=== PATIENT | female | born 1990 | race Caucasian/White ===

== ENCOUNTER 2017-02-02 05:54 | Inpatient (IN) | payer OTHER ==
[2017-02-02] MEDS ORDERED: LACTATED RINGERS 1,000 ML IV SCH (06:11)
[2017-02-02] MEDS ORDERED: TERBUTALINE 1 MG/ML VIAL SQ PRN (06:11)
[2017-02-02] MEDS ORDERED: METHYLERGONOVINE 0.2 MG/ML 1 ML AMP IM PRN (06:11)
[2017-02-02] MEDS ORDERED: CARBOPROST TROMETHAMINE 250 MCG/ML 1 ML AMP IM PRN (06:11)
[2017-02-02] MEDS ORDERED: LIDOCAINE 1% 20 ML VIAL (10MG/ML) FOR IV START INTRADERMA PRN (06:11)
[2017-02-02] MEDS ORDERED: LIDOCAINE 1% (PF) 10 MG/ML (30 ML SDV) SQ PRN (06:11)
[2017-02-02] MEDS ORDERED: OXYTOCIN 10 UNIT/ML 1 ML VIAL IM PRN (06:11)
[2017-02-02] MEDS ORDERED: OXYTOCIN 30 UNITS/500 ML NS 30 UNIT in SALINE 1 500ML.BAG IV SCH ×2 (06:11→15:12)
[2017-02-02 06:33] LABS: Basophils % (A) 0 %; CH 25.5; CHCM 31.7; Eosinophils # (A) 0.1 k/uL (0-0.7); Eosinophils % (A) 1 %; HCT 32.3 % (34.0-46.0); HDW 3.18; HGB 10.1 gm/dL (11.4-16.0); Hypochromasia Slight; Luc # (Auto) 0.32; Luc % (Auto) 4; Lymphocytes # (A) 1.6 k/uL (1.0-4.8); Lymphocytes % (A) 17 %; MCH 25.3 pg (25.0-35.0); MCHC 31.4 g/dL (31.0-37.0); MCV 80.8 fL (80.0-100.0); Monocytes # (A) 0.4 k/uL (0-1.0); Monocytes % (A) 5 %; Neutrophils # (A) 6.8 k/uL (1.3-7.7); Neutrophils % (A) 74 %; RDW 14.1 % (11.5-15.5); WBC 9.2 k/uL (3.8-10.6); WBC (Perox) 10.11
[2017-02-02] MEDS: LACTATED RINGERS 1,000 ML IV SCH ×2 (06:36→09:29)
--- NOTE | 2017-02-02 08:28 | P.HPOB ---
History of Present Illness H&P Date: 02/02/17 Chief Complaint: Induction of labor This is a 26-year-old female 5 para 2 with an estimated date of confinement of 02/06/2017, estimated gestational age of 39-3/7 weeks, who presents to labor and delivery for induction of labor. She admits to good movement and has been feeling irregular contractions. course has been uncomplicated. labs: Pap smear within normal limits GC/chlamydia-negative Syphilis antibody-negative Rubella-immune Blood type-A- Antibody screen-negative Random glucose-77 Hepatitis B surface antigen-negative Hemoglobin-12.3 HIV-negative Obstetrical ultrasound-normal anatomy One hour Glucola-119 Group B streptococcus-negative Obstetrical history: . History of 2 miscarriages and history of 2 vaginal deliveries at term. Gynecologic history: No history of sexual transmitted diseases. Review of Systems Gastrointestinal: Reports abdominal pain (Contractions) Genitourinary: Reports pelvic pain, Reports Past Medical History Past Medical History: No Reported History History of Any Multi-Drug Resistant Organisms: None Reported Additional Past Surgical History / Comment(s): eye surgery (), D&C Past Anesthesia/Blood Transfusion Reactions: No Reported Reaction Past Psychological History: No Psychological Hx Reported Smoking Status: Never smoker Past Alcohol Use History: None Reported Past Drug Use History: None Reported - Past Family History Father Family Medical History: No Reported History Medications and Allergies Home Medications Medication Instructions Recorded Confirmed Type Pnv with Ca,No.72/Iron/FA 1 tab PO DAILY 06/05/15 02/02/17 History [ Plus Tablet] Allergies Allergy/AdvReac Type Severity Reaction Status Date / Time No Known Allergies Allergy Verified 02/02/17 06:11 Exam Osteopathic Statement: *. No significant issues noted on an osteopathic structural exam other than those noted in the History and Physical/Consult. - Vital Signs Vital signs: Vital Signs Temp Pulse Resp BP 02/02/17 06:11 97.1 F L 104 H 16 130/62 Intake and Output 02/01/17 02/02/17 02/02/17 22:59 06:59 14:59 Other: Weight 79.832 kg HEENT: Within normal limits Heart: Regular rate and rhythm Lungs: Clear to auscultation bilaterally Abdomen: Cervix: 2-1/2 cm/70%/-2 station heart tones: Reactive Contractions: Irregular Extremities: Negative Homans Results Result Diagrams: 02/02/17 06:15 Abnormal Lab Results - Last 24 Hours (Table) 02/02/17 Range/Units 06:15 Hgb 10.1 L (11.4-16.0) gm/dL Hct 32.3 L (34.0-46.0) % Assessment and Plan (1) 39 weeks gestation of Status: Acute Plan: Proceed with oxytocin induction of labor. Expectant management. Epidural anesthesia when desired.
[2017-02-02] MEDS ORDERED: fentaNYL (PF) 50 MCG/ML 5 ML AMP ONE (09:37)
[2017-02-02] MEDS ORDERED: BUPIVACAINE (PF) 0.25% 30 ML VIAL ONE (09:37)
[2017-02-02] MEDS ORDERED: SODIUM CHLORIDE 0.9% 100 ML BAG ONE (09:37)
[2017-02-02] MEDS ORDERED: BUPIVACAINE (PF) 0.25% 25 ML, fentaNYL (PF) 200 MCG in SODIUM CHLORIDE 0.9% 71 ML EPIDURAL ONE (10:20)
[2017-02-02] MEDS ORDERED: ZOLPIDEM 5 MG TAB PO PRN (15:12)
[2017-02-02] MEDS ORDERED: diphenhydrAMINE 50 MG/ML 1 ML VIAL IVP PRN ×2 (15:12)
[2017-02-02] MEDS ORDERED: WITCH HAZEL 1 EACH MED..PAD TOPICAL PRN (15:12)
[2017-02-02] MEDS ORDERED: diphenhydrAMINE 50 MG CAP PO PRN (15:12)
[2017-02-02] MEDS ORDERED: diphenhydrAMINE 25 MG CAP PO PRN (15:12)
[2017-02-02] MEDS ORDERED: Acetaminophen-Codeine 300-30mg TAB PO PRN ×2 (15:12)
[2017-02-02] MEDS ORDERED: BENZOCAINE/MENTHOL SPRAY 1 GM/SPRAY AEROSOL TOPICAL PRN (15:12)
[2017-02-02] MEDS ORDERED: LANOLIN CREAM 5 GM TUBE TOPICAL PRN (15:12)
[2017-02-02] MEDS ORDERED: SIMETHICONE 80 MG CHEWABLE PO PRN (15:12)
[2017-02-02] MEDS ORDERED: HYDROCORTISONE 2.5% RECTAL CREAM 30 GM TUBE RECTAL PRN (15:12)
[2017-02-02] MEDS: IBUPROFEN 600 MG TAB PO PRN ×2 (15:38→23:18)
--- NOTE | 2017-02-02 17:32 | P.PROBDLV ---
Vaginal Delivery Note - . Vaginal Delivery Note: The patient progressed to complete dilation after oxytocin induction of labor and artificial rupture membranes with clear fluid noted. She did receive epidural anesthesia. Once reaching complete dilation, she began pushing. Infant's head came to a crown. With one further push, the infant's head delivered across the perineum followed by the anterior shoulder. Nose and mouth were bulb suctioned at the perineum. With one remaining push, the remainder the easily delivered and was placed on mother's abdomen. Cord was clamped and cut and infant was taken to warmer for evaluation. A viable male is noted with scores of 9 at 1 minute and 9 at 5 minutes and infant weight of 8 lbs. 8 oz. Placenta delivered shortly thereafter, intact, with a three-vessel cord. Uterus contracted fairly well after oxytocin was given and uterine massage was carried out. Inspection of the perineum revealed a second-degree perineal laceration. This area was anesthetized with 1% lidocaine and then sutured with 3-0 Vicryl suture in the usual multilayer fashion. Uterus did become boggy and several clots were expressed. Bladder was drained and the uterus did firm up fairly well. Estimated blood loss is approximate 200 mL's. Both mother and infant are in stable condition.
[2017-02-02] MEDS: ACETAMINOPHEN TAB 325 MG TAB PO PRN (19:31)
[2017-02-02] MEDS: SENNOSIDES-DOCUSATE SODIUM 1 EACH TAB PO SCH ×2 (21:53→23:17)
[2017-02-02] MEDS ORDERED: Rhogam IMMUNE GLOBULIN 1,500 UNIT/1 ML IM ONE (23:03)
[2017-02-03] MEDS: ACETAMINOPHEN TAB 325 MG TAB PO PRN ×3 (04:43→20:48)
--- NOTE | 2017-02-03 07:29 | P.PNOBGVD ---
Subjective - Subjective Principal diagnosis: Status post vaginal delivery day #1 Interval history: Patient is doing well. Pain is fairly well controlled with oral pain medications. Lochia is decreasing. She is breast-feeding. Patient reports: Reports appetite normal, Reports voiding normally, Reports pain well controlled, Reports ambulating normally Logan: doing well, nursing well Objective - Latest Vital Signs Latest vital signs: Vital Signs Temp Pulse Resp BP 02/03/17 00:00 98 F 99 15 119/80 02/02/17 20:00 98 F 94 15 117/69 02/02/17 17:11 98.8 F 109 H 16 119/58 02/02/17 16:41 98.9 F 112 H 16 126/57 02/02/17 16:11 105 H 16 119/57 02/02/17 15:56 99 F 102 H 16 133/62 02/02/17 15:41 107 H 16 133/62 02/02/17 15:26 98 16 129/56 02/02/17 15:11 88 16 130/60 Intake and Output 02/02/17 02/03/17 02/03/17 22:59 06:59 14:59 Intake Total 1258.533 Balance 1258.533 Intake: IV 1000 Lactated Ringers 1,000 ml 1000 @ 125 mls/hr IV .Q8H JOHNATHAN Rx#:[id number] Intake, IV Titration 258.533 Amount Oxytocin 30 Units/500 ml 8.533 Ns 30 unit In Saline 1 500ml.bag @ 1 MILLIUNIT/ MIN 1 mls/hr IV .Q24H JOHNATHAN Rx#:[id number] Oxytocin 30 Units/500 ml 250 Ns 30 unit In Saline 1 500ml.bag @ 120 MILLIUNIT /MIN 120 mls/hr IV . Q4H10M JOHNATHAN Rx#:[id number] Other: # Voids 1 1 - Exam Extremities: Present: normal. Absent: tenderness Abdomen: Present: normal appearance, soft. Absent: distention, tenderness Uterus: Present: normal, firm. Absent: tenderness Assessment and Plan (1) 39 weeks gestation of Narrative/Plan: Impression is status post vaginal delivery day #1. Plan is to discharge home tomorrow. We'll continue with care today. Current Visit: Yes Status: Acute Code(s): Z3A.39 - 39 WEEKS GESTATION OF SNOMED Code(s): 51333053
[2017-02-03] MEDS: SENNOSIDES-DOCUSATE SODIUM 1 EACH TAB PO SCH ×2 (08:55→20:36)
[2017-02-03] MEDS: IBUPROFEN 600 MG TAB PO PRN ×2 (08:55→15:53)
[2017-02-03 10:11] LABS: Basophils % (A) 0 %; CH 25.5; CHCM 31.1; Eosinophils % (A) 0 %; HCT 32.2 % (34.0-46.0); HDW 3.06; HGB 9.7 gm/dL (11.4-16.0); Hypochromasia Moderate; Luc # (Auto) 0.29; Luc % (Auto) 3; Lymphocytes # (A) 1.4 k/uL (1.0-4.8); Lymphocytes % (A) 12 %; MCH 24.7 pg (25.0-35.0); MCV 82.4 fL (80.0-100.0); Mean Platelet Volume 9.2; Monocytes # (A) 0.4 k/uL (0-1.0); Monocytes % (A) 3 %; Neutrophils # (A) 9.4 k/uL (1.3-7.7); Neutrophils % (A) 82 %; RBC 3.91 m/uL (3.80-5.40); RDW 14.1 % (11.5-15.5); WBC 11.4 k/uL (3.8-10.6); WBC (Perox) 12.45
[2017-02-04] MEDS: IBUPROFEN 600 MG TAB PO PRN (07:34)
--- NOTE | 2017-02-04 07:47 | P.DS ---
Providers Date of admission: 02/02/17 05:54 Expected date of discharge: 02/04/17 Attending physician: Ines Hayden Primary care physician: Gia Cheng - Discharge Diagnosis(es) (1) 39 weeks gestation of Current Visit: Yes Status: Acute Hospital Course: This is a 26-year-old female 5 para 2 at 39-3/7 weeks who presented for induction of labor. She underwent oxytocin induction of labor and delivered vaginally a viable male on 02/02/2017 with scores of 9 at 1 minute and 9 at 5 minutes and weight of 8 lbs. 8 oz. Her course has been essentially uncomplicated. Her pain and cramping has been controlled with ibuprofen and Tylenol 3. She is breast-feeding. Lochia is decreasing. Vital signs are stable. Abdomen is soft with fundus firm and nontender. Extremities show negative Homans. Impression is status post vaginal delivery day #2. Plan is to discharge home today. Routine instructions are given. She will be given prescriptions for ibuprofen and Tylenol 3. She are he has a prescription for a breast pump. She is advised to call the office if she has any further questions or concerns prior to her appointment time. She is advised follow-up in the office in 6 weeks. Procedures: Oxytocin induction of labor Spontaneous vaginal delivery of a viable male infant on 02/02/2017 Patient Condition at Discharge: Stable Plan - Discharge Summary New Discharge Prescriptions: Acetaminophen-Codeine 300-30mg [Tylenol w/codeine #3] 1 each PO Q4HR PRN #30 tab PRN Reason: Mild Pain exceeding Tylenol Ibuprofen [Motrin] 600 mg PO Q6HR PRN #60 tab PRN Reason: Mild Pain Or Fever >= 100.5 Discharge Medication List Pnv with Ca,No.72/Iron/FA [ Plus Tablet] 1 tab PO DAILY 06/05/15 [ History] Acetaminophen Tab [Tylenol] 650 mg PO Q4HR PRN #0 tab 06/06/15 [Rx] Acetaminophen-Codeine 300-30mg [Tylenol w/codeine #3] 1 each PO Q4HR PRN #30 tab 02/04/17 [Rx] Ibuprofen [Motrin] 600 mg PO Q6HR PRN #60 tab 02/04/17 [Rx] Follow up Appointment(s)/Referral(s): Ines Hayden DO [Doctor of Osteopathic Medicine] - 6 Weeks Activity/Diet/Wound Care/Special Instructions: Instructions 1. Do not begin any exercise program for 3 weeks. 2. Do not resume sexual relations for 3 weeks or longer if uncomfortable. 3. You may take tub baths or showers at any time. 4. You may use tampons if desired after 3 weeks. 5. Keep the area of episiotomy (stitches) clean and dry. 6. If you are not nursing, wear a good fitting, supportive bra during the day and limit fluid intake for at least 1 week to prevent breast engorgement. 7. Call the office, [phone], within the next week to make appointment for your 6 week checkup if it has not already been made. 8. Report any of the following occurrences to the doctor promptly: a. Heavy, excessive bleeding b. Chills, fever c. Burning or frequency of urination d. Pain or redness and breasts if nursing e. Increasing pain or swelling in episiotomy (stitches). In addition to the above instructions, the following additional should be followed: 1. No heavy lifting or straining (exercising) until after 6 week checkup. 2. Keep abdominal incision clean and dry: You may wear a dressing if more comfortable. 3. Make office appointment for 10 days after going home or as instructed by her doctor. Discharge Disposition: HOME SELF-CARE
[2017-02-04 08:24] VITALS: BP 95/64; PULSE 86; RESP 16; TEMP 98.2
[2017-02-04] MEDS: SENNOSIDES-DOCUSATE SODIUM 1 EACH TAB PO SCH (08:29)
[2017-02-04] MEDS: ACETAMINOPHEN TAB 325 MG TAB PO PRN (12:33)
== END 2017-02-04 13:30 | disposition home or self-care (01) | DRG 775 ==
LOC: 4FBP 05:54
PROVIDERS: ADMIT Obstetrics & Gynecology; ATTEND Obstetrics & Gynecology
PROC: 00HU33Z Insertion of Infusion Device into Spinal Canal, Percutaneous Approach (ICD-10-PCS; principal; 2017-02-02)
PROC: 0KQM0ZZ Repair Perineum Muscle, Open Approach (ICD-10-PCS; principal; 2017-02-02)
PROC: 3E033VJ Introduction of Other Hormone into Peripheral Vein, Percutaneous Approach (ICD-10-PCS; principal; 2017-02-02)
PROC: 10E0XZZ Delivery of Products of Conception, External Approach (ICD-10-PCS; principal; 2017-02-02)
PROC: 10907ZC Drainage of Amniotic Fluid, Therapeutic from Products of Conception, Via Natural or Artificial Opening (ICD-10-PCS; principal; 2017-02-02)
PROC: 3E0R3CZ (ICD-10-PCS; principal; 2017-02-02)
DX: O70.1 Second degree perineal laceration during delivery (principal); Z37.0 Single live birth; Z3A.39 39 weeks gestation of pregnancy
CPT/HCPCS: 85025; 85461; 88307